=== PATIENT | male | born 1985 | race Two or more races ===

== ENCOUNTER 2018-12-17 22:54 | Inpatient (IN) | payer MEDICAID ==
[~2018-12-17] VITALS: Ht 172.7 cm; Wt 68.5 kg
[2018-12-18 01:33] LABS: BASOPHILS % (AUTO) 1.2 % (0.0-2.0); EOSINOPHILS % (AUTO) 3.2 % (1.0-6.0); HEMATOCRIT 42.1 % (41-53); HEMOGLOBIN 13.8 g/dL (13.5-17.5); LYMPHOCYTES # (AUTO) 2.1 K/uL (1.0-4.8); LYMPHOCYTES % (AUTO) 31.1 % (22.0-44.0); MEAN CORPUSCULAR HEMOGLOBIN 30.1 pg (26.0-34.0); MEAN CORPUSCULAR HGB CONC 32.7 G/dL (31.0-37.0); MEAN CORPUSCULAR VOLUME 92 fL (80-100); MONOCYTES # (AUTO) 0.6 K/uL (0.1-1.0); MONOCYTES % (AUTO) 8.3 % (2.0-9.0); NEUTROPHILS # (AUTO) 3.8 K/uL (1.8-7.7); NEUTROPHILS % (AUTO) 56.2 % (40.0-70.0); PLATELET COUNT (AUTO) 235 K/uL (150-450); RED BLOOD CELL COUNT(AUTO) 4.58 MIL/uL (4.50-5.90); RED CELL DISTRIBUTION WIDTH 13.9 % (11.5-14.5)
[2018-12-18 01:39] LABS: ANION GAP 6 mmol/L (8-16); CALCIUM, TOTAL 8.9 mg/dL (8.8-10.5); CARBON DIOXIDE 31 mmol/L (22-29); CHLORIDE 107 mmol/L (98-107); CREATININE 0.95 mg/dL (0.60-1.30); GLOMERULAR FILTR. RATE CALC > 60 mL/min (>60); GLUCOSE,RANDOM 96 mg/dL (70-110); POTASSIUM 4.5 mmol/L (3.5-5.1); SODIUM SERUM 144 mmol/L (136-145); UREA NITROGEN, BLOOD 9 mg/dL (7-18)
[2018-12-18 01:39] LABS: AMPHET/METH SCREEN,URINE NEGATIVE (NEGATIVE); BARBITURATE SCREEN, URINE NEGATIVE (NEGATIVE); BENZODIAZEPINES SCREEN,URINE NEGATIVE (NEGATIVE); CANNABINOID SCREEN,URINE NEGATIVE (NEGATIVE); COCAINE SCREEN,URINE NEGATIVE (NEGATIVE); METHADONE SCREEN, URINE NEGATIVE (NEGATIVE); OPIATE SCREEN,URINE NEGATIVE (NEGATIVE)
[2018-12-18 01:40] LABS: PHENCYCLIDINE SCREEN,URINE NEGATIVE (NEGATIVE)
[2018-12-18 01:46] LABS: ALANINE AMINOTRANSFERASE 21 U/L (12-78); ALBUMIN 4.5 g/dL (3.4-5.0); ALKALINE PHOSPHATASE 58 U/L (46-116); ASPARTATE AMINOTRANSFERASE 25 U/L (15-37); BILIRUBIN,TOTAL 0.5 mg/dL (0.1-1.0); TOTAL PROTEIN, SERUM 8.1 g/dL (6.4-8.2)
[2018-12-18] MEDS ORDERED: QUEtiapine FUMARATE 100 MG TABLET PO PRN (02:45)
[2018-12-18] MEDS ORDERED: ZOLPIDEM TARTRATE 10 MG TABLET PO PRN (02:45)
[2018-12-18] MEDS ORDERED: MAGNESIUM HYDROXIDE SUSPENSION 30 ML UDCUP PO PRN (06:00)
[2018-12-18] MEDS ORDERED: NICOTINE 14 MG/24 HOUR PATCH TD PRN (06:00)
[2018-12-18] MEDS ORDERED: ONDANSETRON HCL 4 MG TABLET PO PRN (06:00)
[2018-12-18] MEDS ORDERED: LOPERAMIDE HCL 2 MG CAPSULE PO PRN (06:00)
[2018-12-18] MEDS ORDERED: DOCUSATE SODIUM 100 MG CAPSULE PO PRN (06:00)
[2018-12-18] MEDS ORDERED: CloNIDine HCL 0.1 MG TABLET PO PRN (06:00)
[2018-12-18] MEDS ORDERED: ALBUTEROL SULFATE HFA 90 MCG/PUFF 8 GM INHALER IH PRN (06:00)
[2018-12-18] MEDS ORDERED: IBUPROFEN 400 MG TABLET PO PRN (06:00)
[2018-12-18] MEDS ORDERED: ACETAMINOPHEN 325 MG TABLET PO PRN (06:00)
[2018-12-18] MEDS ORDERED: MAG HYDROX/AL HYDROX/SIMETH ES 30 ML SUSPENSION UDCUP PO PRN (06:00)
[2018-12-18] MEDS ORDERED: PETROLATUM,WHITE 28 GM JELLY TP PRN (06:00)
[2018-12-18] MEDS ORDERED: GuaiFENesin/D-METHORPHAN [SUGAR-FREE] 200-20MG/10 ML SYRUP UDCUP PO PRN (06:00)
[2018-12-18 06:15] VITALS: BP 126/82
[2018-12-18] MEDS ORDERED: INFLUENZA VIRUS VACCINE QVS 2019-20 (3YR+)/PF 60 MCG/0.5 ML SYRINGE IM ONE (06:30)
[2018-12-18 08:11] VITALS: BP 137/81
[2018-12-18 16:07] VITALS: BP 118/63
[2018-12-18] MEDS: RisperiDONE 1 MG TABLET PO SCH (21:01)
[2018-12-19 00:36] VITALS: BP 107/68
[2018-12-19 08:16] VITALS: BP 134/80
[2018-12-19] MEDS: RisperiDONE 1 MG TABLET PO SCH ×2 (09:01→20:09)
[2018-12-19 16:16] VITALS: BP 111/67
[2018-12-20 00:08] VITALS: BP 133/60
[2018-12-20 08:00] LABS: HEMATOCRIT 40.2 % (41-53); HEMOGLOBIN 13.5 g/dL (13.5-17.5); LYMPHOCYTES # (AUTO) 2.4 K/uL (1.0-4.8); LYMPHOCYTES % (AUTO) 39.1 % (22.0-44.0); MEAN CORPUSCULAR HEMOGLOBIN 30.7 pg (26.0-34.0); MEAN CORPUSCULAR HGB CONC 33.6 G/dL (31.0-37.0); MEAN CORPUSCULAR VOLUME 91 fL (80-100); MONOCYTES # (AUTO) 0.6 K/uL (0.1-1.0); MONOCYTES % (AUTO) 10.3 % (2.0-9.0); NEUTROPHILS # (AUTO) 2.7 K/uL (1.8-7.7); NEUTROPHILS % (AUTO) 44.6 % (40.0-70.0); PLATELET COUNT (AUTO) 236 K/uL (150-450); RED BLOOD CELL COUNT(AUTO) 4.39 MIL/uL (4.50-5.90); RED CELL DISTRIBUTION WIDTH 13.5 % (11.5-14.5)
[2018-12-20] MEDS: RisperiDONE 1 MG TABLET PO SCH (08:26)
[2018-12-20 08:39] LABS: ALANINE AMINOTRANSFERASE 17 U/L (12-78); ALBUMIN 3.5 g/dL (3.4-5.0); ALKALINE PHOSPHATASE 49 U/L (46-116); ANION GAP 6 mmol/L (8-16); ASPARTATE AMINOTRANSFERASE 18 U/L (15-37); BILIRUBIN,TOTAL 0.9 mg/dL (0.1-1.0); CALCIUM, TOTAL 9.1 mg/dL (8.8-10.5); CARBON DIOXIDE 30 mmol/L (22-29); CHLORIDE 105 mmol/L (98-107); CHOL/HDL RATIO 1.7 (4.2-7.3); CHOLESTEROL 146 mg/dL (131-200); CREATININE 0.94 mg/dL (0.60-1.30); GLOMERULAR FILTR. RATE CALC > 60 mL/min (>60); GLUCOSE,RANDOM 95 mg/dL (70-110); HDL CHOLESTEROL 85 mg/dL (40-60); LDL CHOL (CALC.) 56 mg/dL (0-130); POTASSIUM 3.7 mmol/L (3.5-5.1); SODIUM SERUM 141 mmol/L (136-145); THYROID STIMULATING HORMONE 1.82 uIU/mL (0.36-3.74); TOTAL PROTEIN, SERUM 6.7 g/dL (6.4-8.2); TRIGLYCERIDES 24 mg/dL (15-150); UREA NITROGEN, BLOOD 13 mg/dL (7-18)
[2018-12-20 09:48] LABS: HEMOGLOBIN A1C 5.4 % (4.5-6.2)
[2018-12-20] MEDS: LORazepam 2 MG TABLET PO PRN (10:52)
[2018-12-20 12:39] VITALS: BP 101/63
[2018-12-20 16:13] VITALS: BP 105/60
[2018-12-20] MEDS: RisperiDONE 2 MG TABLET PO SCH (20:19)
[2018-12-21 00:10] VITALS: BP 110/68
[2018-12-21 08:28] VITALS: BP 103/60
[2018-12-21] MEDS: RisperiDONE 2 MG TABLET PO SCH ×2 (08:35→20:03)
[2018-12-22 06:21] VITALS: BP 102/60
[2018-12-22] MEDS: RisperiDONE 2 MG TABLET PO SCH (08:14)
[2018-12-22 08:35] VITALS: BP 105/62
[2018-12-22 16:09] VITALS: BP 107/68
[2018-12-22] MEDS: RisperiDONE 3 MG TABLET PO SCH (20:32)
[2018-12-23 00:44] VITALS: BP 108/70
[2018-12-23 08:22] VITALS: BP 128/75
[2018-12-23] MEDS: RisperiDONE 3 MG TABLET PO SCH ×2 (08:45→20:41)
[2018-12-23 16:14] VITALS: BP 102/65
[2018-12-24 02:20] VITALS: BP 110/78
[2018-12-24 08:16] VITALS: BP 113/80
[2018-12-24] MEDS: RisperiDONE 3 MG TABLET PO SCH ×2 (08:17→20:24)
[2018-12-24 16:12] VITALS: BP 104/66
[2018-12-25 00:53] VITALS: BP 107/70
[2018-12-25 08:23] VITALS: BP 137/85
[2018-12-25] MEDS: RisperiDONE 3 MG TABLET PO SCH ×2 (08:28→20:48)
[2018-12-25 16:00] VITALS: BP 110/60
[2018-12-26 02:59] VITALS: BP 108/71
[2018-12-26 08:21] VITALS: BP 107/60
[2018-12-26] MEDS: RisperiDONE 3 MG TABLET PO SCH (08:49)
[2018-12-26] MEDS: VALPROIC ACID 250 MG/5 ML SYRUP UDCUP PO SCH ×2 (11:00→20:37)
[2018-12-26 16:11] VITALS: BP 107/58
[2018-12-26] MEDS: RisperiDONE CONC 3 MG/3 ML SOLUTION ORAL.SYG PO SCH (20:37)
[2018-12-27 08:13] VITALS: BP 117/69
[2018-12-27] MEDS: RisperiDONE CONC 3 MG/3 ML SOLUTION ORAL.SYG PO SCH (08:45)
[2018-12-27] MEDS: VALPROIC ACID 250 MG/5 ML SYRUP UDCUP PO SCH ×3 (08:45→20:09)
[2018-12-27] MEDS: OLANZapine 5 MG RAPDIS TABLET PO SCH ×2 (10:14→20:09)
[2018-12-27 16:37] VITALS: BP 107/61
[2018-12-28 00:37] VITALS: BP 102/63
[2018-12-28] MEDS: OLANZapine 5 MG RAPDIS TABLET PO SCH ×2 (08:20→20:07)
[2018-12-28] MEDS: VALPROIC ACID 250 MG/5 ML SYRUP UDCUP PO SCH ×2 (08:20→20:07)
[2018-12-28 08:29] VITALS: BP 109/71
[2018-12-28 16:13] VITALS: BP 100/60
[2018-12-29 05:58] VITALS: BP 110/74
[2018-12-29] MEDS: OLANZapine 5 MG RAPDIS TABLET PO SCH ×2 (08:05→20:13)
[2018-12-29] MEDS: VALPROIC ACID 250 MG/5 ML SYRUP UDCUP PO SCH ×2 (08:06→20:13)
[2018-12-29 08:51] VITALS: BP 117/67
[2018-12-29 16:25] VITALS: BP 115/76
[2018-12-30 00:27] VITALS: BP 117/63
[2018-12-30 08:17] VITALS: BP 106/65
[2018-12-30] MEDS: OLANZapine 5 MG RAPDIS TABLET PO SCH ×2 (08:33→20:36)
[2018-12-30] MEDS: VALPROIC ACID 250 MG/5 ML SYRUP UDCUP PO SCH ×2 (08:33→20:36)
[2018-12-30 16:23] VITALS: BP 108/72
[2018-12-31 00:20] VITALS: BP 110/62
[2018-12-31 08:24] VITALS: BP 126/77
[2018-12-31] MEDS: OLANZapine 5 MG RAPDIS TABLET PO SCH ×2 (08:25→20:36)
[2018-12-31] MEDS: VALPROIC ACID 250 MG/5 ML SYRUP UDCUP PO SCH ×2 (08:25→20:36)
[2018-12-31 16:24] VITALS: BP 107/60
[2019-01-01 01:10] VITALS: BP 131/81
[2019-01-01] MEDS: VALPROIC ACID 250 MG/5 ML SYRUP UDCUP PO SCH ×2 (08:05→20:14)
[2019-01-01] MEDS: OLANZapine 5 MG RAPDIS TABLET PO SCH ×2 (08:05→20:15)
[2019-01-01 08:13] VITALS: BP 118/75
[2019-01-01 16:10] VITALS: BP 100/60
[2019-01-02 01:20] VITALS: BP 105/64
[2019-01-02 08:13] VITALS: BP 121/70
[2019-01-02] MEDS: VALPROIC ACID 250 MG/5 ML SYRUP UDCUP PO SCH ×2 (08:24→20:06)
[2019-01-02] MEDS: OLANZapine 5 MG RAPDIS TABLET PO SCH ×2 (08:24→20:05)
[2019-01-02 16:17] VITALS: BP 118/67
[2019-01-03 00:10] VITALS: BP 110/72
[2019-01-03] MEDS: VALPROIC ACID 250 MG/5 ML SYRUP UDCUP PO SCH ×2 (08:04→20:13)
[2019-01-03] MEDS: OLANZapine 5 MG RAPDIS TABLET PO SCH ×2 (08:04→20:13)
[2019-01-03 08:53] VITALS: BP 111/67
[2019-01-03 16:11] VITALS: BP 127/67
[2019-01-04 06:43] VITALS: BP 123/63
[2019-01-04 08:09] VITALS: BP 120/77
[2019-01-04] MEDS: VALPROIC ACID 250 MG/5 ML SYRUP UDCUP PO SCH ×2 (08:55→20:49)
[2019-01-04] MEDS: OLANZapine 5 MG RAPDIS TABLET PO SCH (08:55)
[2019-01-04] MEDS ORDERED: OLANZapine 10 MG RAPDIS TABLET PO SCH (09:00)
[2019-01-04 16:45] VITALS: BP 122/74
[2019-01-04] MEDS: LORazepam 2 MG TABLET PO PRN (18:00)
[2019-01-05 01:36] VITALS: BP 127/69
[2019-01-05 08:28] VITALS: BP 105/64
[2019-01-05] MEDS: VALPROIC ACID 250 MG/5 ML SYRUP UDCUP PO SCH ×2 (09:17→20:07)
[2019-01-05] MEDS: OLANZapine 5 MG RAPDIS TABLET PO SCH (09:17)
[2019-01-05] MEDS: LORazepam 2 MG TABLET PO PRN (09:41)
[2019-01-05 17:52] VITALS: BP 126/72
[2019-01-05] MEDS: OLANZapine 10 MG RAPDIS TABLET PO SCH (20:06)
[2019-01-06 01:23] VITALS: BP 111/82
[2019-01-06 08:30] VITALS: BP 106/76
[2019-01-06] MEDS: VALPROIC ACID 250 MG/5 ML SYRUP UDCUP PO SCH ×2 (09:19→20:06)
[2019-01-06] MEDS: OLANZapine 5 MG RAPDIS TABLET PO SCH (09:20)
[2019-01-06] MEDS ORDERED: VALP250S23 PO ×2 (14:50)
[2019-01-06] MEDS ORDERED: OLAN10TA22 PO (14:50)
[2019-01-06] MEDS ORDERED: OLAN5TAB30 PO (14:50)
[2019-01-06] MEDS ORDERED: OLAN5TAB40 PO (14:53)
[2019-01-06] MEDS ORDERED: OLAN10TA6 PO (14:53)
[2019-01-06] MEDS ORDERED: DIVA-78 PO ×2 (14:54)
[2019-01-06 16:00] VITALS: BP 116/68
[2019-01-06] MEDS: OLANZapine 10 MG RAPDIS TABLET PO SCH (20:05)
== END 2019-01-06 21:35 | disposition left against medical advice (07) | DRG 885 ==
LOC: EMS 22:58 → B2S 12-18 03:00 → B3A 01-04 18:12
DX: F20.0 Paranoid schizophrenia (principal); F43.10 Post-traumatic stress disorder, unspecified; K59.00 Constipation, unspecified; Z28.21 Immunization not carried out because of patient refusal; Z53.29 Procedure and treatment not carried out because of patient's decision for other reasons; F94.0 Selective mutism; F32.9 Major depressive disorder, single episode, unspecified; F41.9 Anxiety disorder, unspecified; G47.00 Insomnia, unspecified; R10.13 Epigastric pain
CPT/HCPCS: 83036; 84443; G0480

== ENCOUNTER 2020-03-23 23:19 | Emergency (ER) | payer MEDICAID ==
[~2020-03-23] VITALS: Ht 170.2 cm; Wt 68.2 kg
[~2020-03-23 23:19] MED LIST: DIVA-112 PO; OLAN10TA22 PO; OLAN10TA6 PO; OLAN5TAB30 PO; OLAN5TAB40 PO; VALP250S23 PO
[2020-03-24] MEDS ORDERED: DICYCLOMINE HCL 20 MG TABLET PO ONE
[2020-03-24] MEDS ORDERED: LOPERAMIDE HCL 2 MG CAPSULE PO ONE
[2020-03-24] MEDS ORDERED: SODIUM CHLORIDE 0.9% 1,000 ML IV ONE
[2020-03-24 00:38] LABS: BASOPHILS % (AUTO) 0.4 % (0.0-2.0); EOSINOPHILS % (AUTO) 2.9 % (1.0-6.0); HEMATOCRIT 41.9 % (41-53); HEMOGLOBIN 13.7 g/dL (13.5-17.5); LYMPHOCYTES # (AUTO) 1.5 K/uL (1.0-4.8); MEAN CORPUSCULAR HEMOGLOBIN 29.9 pg (26.0-34.0); MEAN CORPUSCULAR HGB CONC 32.6 G/dL (31.0-37.0); MEAN CORPUSCULAR VOLUME 92 fL (80-100); MONOCYTES # (AUTO) 0.7 K/uL (0.1-1.0); MONOCYTES % (AUTO) 11.3 % (2.0-9.0); NEUTROPHILS # (AUTO) 3.7 K/uL (1.8-7.7); NEUTROPHILS % (AUTO) 60.4 % (40.0-70.0); PLATELET COUNT (AUTO) 297 K/uL (150-450); RED BLOOD CELL COUNT(AUTO) 4.57 MIL/uL (4.50-5.90); RED CELL DISTRIBUTION WIDTH 13.8 % (11.5-14.5)
[2020-03-24 00:42] LABS: APPEARANCE,URINE CLEAR (CLEAR); BILIRUBIN,URINE NEGATIVE (NEGATIVE); GLUCOSE, URINE (UA) NEGATIVE (NEGATIVE); KETONES,URINE NEGATIVE (NEGATIVE); LEUKOCYTE ESTERASE ,URINE NEGATIVE (NEGATIVE); NITRATE,URINE NEGATIVE (NEGATIVE); OCCULT BLOOD,URINE NEGATIVE (NEGATIVE); PROTEIN,URINE NEGATIVE (NEGATIVE); UROBILINOGEN,URINE 0.2 mg/dL (<=1.0)
[2020-03-24 00:47] LABS: ANION GAP 8 mmol/L (8-16); CALCIUM, TOTAL 9.2 mg/dL (8.8-10.5); CARBON DIOXIDE 26 mmol/L (22-29); CHLORIDE 108 mmol/L (98-107); CREATININE 0.97 mg/dL (0.60-1.30); GLOMERULAR FILTR. RATE CALC > 60 mL/min (>60); GLUCOSE,RANDOM 96 mg/dL (70-110); POTASSIUM 4.2 mmol/L (3.5-5.1); SODIUM SERUM 142 mmol/L (136-145); UREA NITROGEN, BLOOD 12 mg/dL (7-18)
[2020-03-24 00:55] LABS: ALANINE AMINOTRANSFERASE 29 U/L (12-78); ALBUMIN 3.9 g/dL (3.4-5.0); ALKALINE PHOSPHATASE 63 U/L (46-116); ASPARTATE AMINOTRANSFERASE 32 U/L (15-37); BILIRUBIN,TOTAL 0.3 mg/dL (0.1-1.0); LIPASE 113 U/L (73-393); TOTAL PROTEIN, SERUM 7.9 g/dL (6.4-8.2)
[2020-03-24 01:45] VITALS: BP 127/80
== END 2020-03-24 02:06 | disposition home or self-care (01) ==
LOC: EMS 23:20
DX: R19.7 Diarrhea, unspecified (principal); R10.9 Unspecified abdominal pain; F32.9 Major depressive disorder, single episode, unspecified; F17.200 Nicotine dependence, unspecified, uncomplicated
CPT/HCPCS: 36415; 80053; 81003; 83690; 85025; 96360; 99283; J7030

== ENCOUNTER 2021-02-14 07:45 | Emergency (ER) | payer MEDICAID ==
[~2021-02-14] VITALS: Ht 170.2 cm; Wt 75.0 kg
[~2021-02-14 07:45] MED LIST changes: +OLAN10TA26 PO; -OLAN10TA6 PO; -OLAN5TAB40 PO; +OLAN5TAB94 PO
[2021-02-14 07:50] VITALS: BP 97/75
[2021-02-14] MEDS ORDERED: LORazepam 1 MG TABLET PO ONE (08:15)
[2021-02-14] MEDS ORDERED: LORazepam 0.5 MG TABLET PO ONE (08:15)
== END 2021-02-14 08:53 | disposition home or self-care (01) ==
LOC: EMS 07:56
DX: F41.9 Anxiety disorder, unspecified (principal); F32.9 Major depressive disorder, single episode, unspecified; Z79.899 Other long term (current) drug therapy
CPT/HCPCS: 99283

== ENCOUNTER 2021-02-20 00:40 | Emergency (ER) | payer MEDICAID ==
[~2021-02-20] VITALS: Ht 175.3 cm; Wt 155.0 kg
[2021-02-20] MEDS ORDERED: LORazepam 1 MG TABLET PO ONE (01:30)
[2021-02-20 03:13] VITALS: BP 113/66
== END 2021-02-20 03:47 | disposition home or self-care (01) ==
LOC: EMS 00:42
DX: F41.9 Anxiety disorder, unspecified (principal); R10.9 Unspecified abdominal pain; R44.0 Auditory hallucinations; F31.9 Bipolar disorder, unspecified; F17.210 Nicotine dependence, cigarettes, uncomplicated
CPT/HCPCS: 99283

== ENCOUNTER 2021-02-20 21:47 | Emergency (ER) | payer MEDICAID ==
[~2021-02-20] VITALS: Ht 170.2 cm; Wt 77.3 kg
[2021-02-20 23:34] VITALS: BP 112/57
[2021-02-21] MEDS ORDERED: LORazepam 1 MG TABLET PO ONE (00:15)
== END 2021-02-21 00:21 | disposition home or self-care (01) ==
LOC: EMS 21:49
DX: F41.9 Anxiety disorder, unspecified (principal); F17.210 Nicotine dependence, cigarettes, uncomplicated; F31.9 Bipolar disorder, unspecified
CPT/HCPCS: 99283